=== PATIENT | male | born 1960 | race Caucasian/White ===

== ENCOUNTER → 2017-05-06 | Day surgery (SDC) | payer OTHER ==
[~2017-05-06] MED LIST: ACETAMINOPHEN 1000 MG/100 ML 100 ML IV ONE; KETOROLAC TROMETHAMINE 30 MG/ML (IVP) VIAL IV PUSH ONE; LACTATED RINGER'S 1000 ML INJ 1,000 ML ONE; MEPERIDINE HCL 25 MG/ML VIAL ONE; MIDAZOLAM HCL 2 MG/2 ML VIAL ONE; ONDANSETRON HCL 4 MG/2 ML VIAL IV PUSH ONE; PROPOFOL 200 MG/20 ML AMP IV ONE; ceFAZolin 2 GM PREMIX 50 ML ONE; oxyCODONE/ACETAMINOPHEN 5 MG/325 MG TAB ONE
--- NOTE | 2017-05-06 10:14 | PD.OP ---
cc: Forrest Holland MD Operative Report Date of Surgery: May 06, 2017 Preoperative Diagnosis: (1) Bilateral inguinal hernia Postoperative Diagnosis: (1) Bilateral inguinal hernia Procedure: Laparoscopic repair of bilateral inguinal hernia with mesh Anesthesia: Gen. Surgeon: Forrest Holland Window Shade Ring Sewer(s): Staff Operation and Findings: Complications: None apparent Estimated blood loss: 10 cc Operative findings: Large indirect and moderate direct hernias on the left. Small direct and indirect on the right. Procedure in detail: The patient was taken to the operating room and placed in the supine position. General endotracheal anesthesia was induced. The abdomen was prepped and draped in usual sterile fashion and a surgical timeout performed to verify correct patient procedure and site. A 1 cm incision was made inferior to the umbilicus after infiltration of local anesthetic. Dissection carried down to the underlying fascia and the anterior fascia to the left of midline was incised vertically. The retrorectus space was developed and the dissecting balloon placed down towards the pubis. The extraperitoneal space was developed by insufflating the balloon. This trocar was then removed and the structural balloon was placed. The extraperitoneal space was insufflated to 11 mmHg with CO2 gas which the patient tolerated well. Next two 5 mm ports were placed in the lower midline. Attention was turned to the left inguinal area. Lateral dissection was carried out until the psoas muscle was identified. Medially Napoleon's ligament was identified. The spermatic cord was evaluated and a large indirect hernia sac was identified. Careful blunt dissection was used to fully reduce the hernia sac. There was a tear in the peritoneum which was closed with a #1 PDS Endoloop. Due to the peritoneal defect the intra-abdominal cavity had become insufflated. Therefore the left mid abdomen a small skin incision was made and a Veress needle placed to allow for desufflation. Ultrapro advanced mesh was cut to 12 x 14 cm size and was placed in the left inguinal area. It was attached at Napoleon's ligament and superior laterally as well as of the rectus anteriorly with capsure tacker. There was complete coverage of the entire inguinal floor including the indirect and direct spaces. Attention was then turned to the right inguinal area. Again lateral dissection was carried out and Napoleon's ligament was identified. There was a small direct defect present. On evaluation of the spermatic cord structures there was a small indirect hernia sac which was fully reduced bluntly. A mesh was then cut to size for the right inguinal floor. This was placed and secured in the same locations using the capsure tacker. There is complete coverage of the right inguinal area. The extraperitoneal spaces and allowed to desufflate and trochars were removed. The anterior fascia was closed with running 2-0 Vicryl suture and skin with 4-0 Monocryl subcuticular as well as Dermabond. The patient tolerated the procedure well and was extubated and taken to PACU in stable condition. Forrest Holland MD May 06, 2017 10:14
== END | disposition home or self-care (01) ==
LOC: ESDC 06:55
PROVIDERS: ATTEND Surgery
DX: K40.20 Bilateral inguinal hernia, without obstruction or gangrene, not specified as recurrent (principal)
CPT/HCPCS: 00840; 49650; C1727; C1781; J0131; J0690; J1885; J2175; J2250; J2405; J3010; J7120